=== PATIENT | female | born 1960 | race Caucasian/White ===

== ENCOUNTER → 2023-10-06 13:19 | Outpatient (REF) | payer OTHER, SELFPAY | LOC: RAD 13:19 | PROVIDERS: ATTENDING PHYSICIAN Internal Medicine | DX: E78.2 Mixed hyperlipidemia (principal); E11.9 Type 2 diabetes mellitus without complications | CPT/HCPCS: 75571 ==

== ENCOUNTER → 2023-10-23 07:18 | Outpatient (REF) | payer OTHER, SELFPAY | LOC: RCS 07:18 | PROVIDERS: ATTENDING PHYSICIAN Internal Medicine | DX: R94.31 Abnormal electrocardiogram [ECG] [EKG] (principal) | CPT/HCPCS: 93306; Q9950 ==

== ENCOUNTER → 2023-12-21 12:57 | Outpatient (REF) | payer BC, SELFPAY | LOC: RAD 12:57 | PROVIDERS: ATTENDING PHYSICIAN Internal Medicine | DX: M21.90 Unspecified acquired deformity of unspecified limb (principal) | CPT/HCPCS: 73120 ==

== ENCOUNTER → 2024-01-17 13:37 | Outpatient (REF) | payer BC, SELFPAY | LOC: WDC 13:37 | PROVIDERS: ATTENDING PHYSICIAN Nurse Practitioner Adult Health; FAMILY PHYSICIAN Internal Medicine | DX: Z12.31 Encounter for screening mammogram for malignant neoplasm of breast (principal) | CPT/HCPCS: 77063; 77067 ==

== ENCOUNTER 2024-02-10 07:50 | Emergency (ER) | payer BC, SELFPAY ==
[2024-02-10 07:52] VITALS: BP 131/89
[2024-02-10 07:56] VITALS: BP 131/72; BMI 26.8
--- NOTE | 2024-02-10 08:05 | EDRN ---
Yesenia BYERS currently at the pts bedside
--- NOTE | 2024-02-10 08:09 | ED.GENMED ---
History of Present Illness
General
Chief Complaint: Musculo-Skeletal Complaint
Source: patient
Exam Limitations: none
Time Seen by Provider: 02/10/24 07:55
Nursing documentation reviewed up to this point in time: agreed with
History of Present Illness
History of Present Illness:
pt is a 63 y/o F with h/o NIDDM
significcant arhtritis in hand, knee
here with L foot and ankle swelling and pain x 4 days
woke up with some pain medial L ankle and thougth she slept 'wrong'
she says over the past few days she has had pain in the dorsum o baldemar L foot and some swelling without skin changes
no wounds, redness, warmth
limping with walking
no fever/chills
no recent travel
no calf pain
h/o b/l LE edema positional, unchanged, no SOB.
chronic
Past History
Past History
ED Past Medical History: NIDDM and Other (arthritis)
ED Past Surgical History: None
Social History
Tobacco: Non-smoker
Alcohol: Occasional
Drug: None
Personal:
Living: with family
Employment: Employed
Family History
Family History: Hypertension
Review of Systems
Review of Systems
Allergies reviewed?: Yes
All Other Systems: Not applicable
Phy Exam
Physical Exam
Physical Exam:
GENERAL: Alert , in no apparent distress, comfortable at rest
HEAD: NCAT
CV: 2+ DP PULSES B/L
NEUROLOGICAL: Alert and oriented, no focal neuro deficits, , 5/5 strength, sensation intact, ambulation slight limp right leg
SKIN: Warm and dry,
MUSCULOSKELETAL: mild STS right ankle with tenderness to malleolus medially; pain with inversion and eversion;
no tenderness at the base of the 5th metatarsal, no other foot tenderness
no knee/prox tib/fib tenderness, full painless ROM;
PSYCH: Normal and appropriate interaction.
Course
Orders/Labs/Results
Orders:
Orders
02/10/24 08:09
Ankle, left 3 view CR [CR Ankle - Left Min 3 Views ] Urgent
Comment:
Reason For Exam: left ankle swelling
CR Foot - Left Min 3 Views Urgent
Comment:
Reason For Exam: left foot swelling, no injury
02/10/24 09:12
Venous Doppler Lwr Ext Left [US Periph Venous LOWER Ext LT] Urgent
Comment:
Reason For Exam: left leg swelling
02/10/24 09:18
Acetaminophen [Tylenol] 650 mg PO NOW STA
02/10/24 09:50
Meloxicam [Mobic] 15 mg PO NOW STA
Vital Signs
Initial and Last Documented VS:
Initial Vital Signs
Temp Pulse Resp BP Pulse Ox
98.5 F 99 22 131/89 98
02/10/24 07:52 02/10/24 07:52 02/10/24 07:52 02/10/24 07:52 02/10/24 07:52
Last Documented Vital Signs
Temp Pulse Resp BP Pulse Ox
98.5 F 86 20 131/72 99
02/10/24 07:56 02/10/24 07:56 02/10/24 07:56 02/10/24 07:56 02/10/24 07:56
MDM/Problems Addressed
Differential Diagnosis Includes:
degenerative or gouty arhtiritis, tendinitis, dvt, less likely septic arthritis
MDM/Problems Addressed:
63 y/o F
with h/o arthritis
says she is trying to see rheum but can't get appt until mar
here with atraumatic L ankle/foot pain/swelling without skin changes for a few days
tried 2 doses of meloxicam yesterday but woke up with more swelling into herfoot so she came in
she is having painful walking
no systemic symptoms
well appearing
no cp, sob
pt has some mild diffuse swelling ankle and foot
no redness
no warmth
normal pulse
normal cap refill
mild edema in both calves, symmetric, nontender, neg homans sign
xrays indep reviewed, mild oa of the ankle and 1st MTP joint
will obtain DVT study
dvt neg
meloxicam
tylenol
supoportiv boot and crutches
f/u ortho this week
*Critical Care Note
Total Time (30-74mins, 75-104mins- exclusive of procedures): Not Applicable
ED Attending Note
-
Portions of this chart may have been created with voice recognition software.� Occasional wrong word or��sound alike� substitutions may have occurred due to the inherent limitations of voice recognition software.
Discharge Plan
Departure
Patient Disposition: Home (Routine Discharge)
Date of Disposition: 02/10/24
Time of Disposition: 10:41
Patient with high blood pressure during this ER visit?: No
Condition: Fair
Covid-19: Not Applicable
Discharge Problem:
Arthritis of ankle, left
Instructions: Muscle and Bone Pain (DC)
Prescriptions:
New
meloxicam 15 mg tablet
15 mg PO DAILY Qty: 7 0RF
No Action
metformin 500 MG tablet
1,500 mg PO DAILY
bupropion HCl [Wellbutrin SR] 150 MG tablet sustained-release 12 hr
150 mg PO DAILY
levothyroxine [Synthroid] 150 MCG tablet
175 mcg PO DAILY
loratadine 10 MG tablet
10 mg PO DAILY
magnesium oxide 250 MG tablet
250 mg PO DAILY
docosahexaenoic acid-epa 1 CAP capsule
1 cap PO DAILY
ibuprofen 600 MG tablet
600 mg PO Q6H PRN (Reason: pain)
Referrals:
Carrington,Jasbir D., MD [Active] - Follow up in 2-3 days (ORTHO)
Anitra Nuñez MD [Family Provider] -
Activity Restrictions/Additional Instructions:
YOU HAD SOME SIGNS OF MILD ARTHRITIS IN YOUR ANKLE AND FOOT
ELEVATE, ICE OFF AND ON WATCH FOR SKIN CHANGES
USE THE BOOT WHILE YOU ARE UP AND ABOUT; USE THE CRUTCHES TO ASSIST WITH WALKING
TAKE TYLENOL 3 TIMES ADAY FOR PAIN
TAKE MELOXICAM ONCE A DAY (15 MG) FOR 5-7 DAYS WITH FOOD
FOLLOW UP WITH ORTHOPEDICS NEXT WEEK
RETURN FOR: SEVERE PAIN, REDNESS TO ANKLE/FOOT, SWELLING WORSENING, FEVER, CHILLS OR A [place] CONCERNS.
Interventions
Interventions:
*Risk Screen - Suicide Last Done: 02/10/24 07:52
*General Assessment Last Done: 02/10/24 07:52
*Neglect/Abuse Screening Last Done: 02/10/24 07:52
ED- Fall Risk Assessment Last Done: 02/10/24 07:56
*ED COVID-19 Vaccine History Last Done: 02/10/24 07:56
*Nursing Disposition Last Done: 02/10/24 11:16
ED-Musculoskeletal Assessment Last Done: 02/10/24 07:56
Discharge Date and Time
Discharge Date/Time: 02/10/24 11:18
Print Language: PARAGUAYAN
== END 2024-02-10 11:18 | disposition home or self-care (01) ==
LOC: EMR 07:50
PROVIDERS: EMERGENCY PHYSICIAN Student in an Organized Health Care Education/Training Program; FAMILY PHYSICIAN Internal Medicine
DX: M19.072 Primary osteoarthritis, left ankle and foot (principal); E11.9 Type 2 diabetes mellitus without complications; Z82.49 Family history of ischemic heart disease and other diseases of the circulatory system
CPT/HCPCS: 99284; 73610; 73630; 93971